=== PATIENT | male | born 1985 | race Caucasian/White ===

== ENCOUNTER 2024-11-30 01:18 | Day surgery (SDC) | payer OTHER, SELFPAY ==
--- NOTE | 2024-11-29 16:16 | SUR.PREOP ---
Report to the Outpatient Waiting Room, entrance under the green pavilion located off [facility], at time _0800_ on date _11/30/24_. Planned Procedure Time: _1000_.? Time changes happen often and if your time is changed the preop area will call you the afternoon before. - You and your visitor will be asked to self-screen and do not enter if you have any COVID symptoms. Please call surgeon if you need to reschedule. - A mask is optional within the hospital at this time. Patients may have clear liquids (water, carbonated beverages, clear teas, apple juice) until 3 hours prior to surgery with a maximum of 20 ounces. - No food from midnight until time of surgery and no smoking, or chewing tobacco (or any form of nicotine). No chewing gum, candy or mints. - Infants may have breast milk until 4 hours before surgery, infant formula 6 hours prior to surgery. - Children will be allowed to drink immediately following surgery.? If applicable, please bring a bottle or sippy cup to assist with drinking. Juice, water, soda, and popsicles are readily available.? For infants on formula, please bring formula the day of surgery.? Pacifiers are allowed. Take only the following medications with a SIP of water on the morning of surgery: _NA_ DO NOT STOP ANY OF YOUR OTHER PRESCRIPTION MEDICATIONS PRIOR TO SURGERY EXCEPT THE FOLLOWING Hold all vitamins and supplements for 3 days per anesthesiologist. Medications to discontinue per physician _NA_ Date to take last dose_NA_ Please no make-up, nail occitan, hairspray, perfume, deodorant, or body powder the day of surgery.? No jewelry (including any body piercings) or valuables the day of surgery, leave them at home.? Please take a shower or bath the night before, or the morning of, surgery with an antibacterial soap.? Wear comfortable, loose fitting clothing.? Children are encouraged to wear pajamas. - Jewelry must be removed prior to entering the operating room.? Rings and piercings that are not removed may be cut off. - The hospital will not accept responsibility for valuables.? - Please leave all valuables, including medications, at home the day of surgery. If you are going home after surgery, a licensed moving van driver must drive you home.? - NO public transportation without another adult if you receive anesthesia. - We recommend that an adult stay with you for 24 hours following discharge. - We also recommend that you do not drive, make important decision, drink alcoholic beverages, or take any drugs that were not prescribed by your health care provider for at least 24 hours after your discharge time. Follow any additional instructions given to you from your surgeon. Telephone instructions given to _Marshallmy_and asked if any additional questions and then verbalized understanding. Patient advised to call surgeon office or pre surgery nurse liaison [phone] if any additional questions.
[2024-11-29 16:23] VITALS: BMI 19.0
[2024-11-30] VITALS (7 sets, daily range): BP systolic 117–164; BP diastolic 71–106; PULSE 48–77; RESP 10–14; TEMP 36.4; O2SAT 98–100
--- OUTSIDE RECORDS SUMMARY | 2024-11-30 01:20 | XMS_ITS | Patient Health Record ---
Author Organization [facility] Address [address] [place] [address] Care Team Providers Care Psych Specialist Name Role Phone Ammon Loco Primary Care Provider [phone] Alona Bojorquez Unavailable Allergies No Known Allergies Results Component Value Reference Range Notes Hepatitis C Virus Antibody w /Rflx to Quantitative Real-time PCR ([id number]) Reviewed date:10/19/2024 01:43:57 PM Interpretation: Performing Lab:[facility], [facility], Phone - [phone], Director - [facility] Notes/Report: HCV Ab Non Reactive Non Reactive Interpretation: Not infected with HCV unless early or acute infection is suspected (which may be delayed in an immunocompromised individual), or other evidence exists to indicate HCV infection. Hepatitis B Surface Antigen (HBsAg Screen) Reviewed date:10/19/2024 01:43:48 PM Interpretation: Performing Lab:[facility], [facility], Phone - [phone], Director - [facility] Notes/Report: HBsAg Screen Negative Negative HIV Screen *HIV 1, 2 Ab, p24 Ag ([id number]) Reviewed date:10/19/2024 01:43:39 PM Interpretation: Performing Lab:[facility], [place] [facility], Phone - [phone], Director - [facility] Notes/Report: HIV Ab/p24 Ag Screen Non Reactive Non Reactive HIV-1/HIV-2 antibodies and HIV-1 p24 antigen were NOT detected. There is no laboratory evidence of HIV infection. HIV Negative Lipid Panel* Reviewed date:10/19/2024 01:43:31 PM Interpretation: Performing [facility], [address] [facility], Phone - [phone], Director - Jasvir Notes/Report: Cholesterol, Total 211 100-199 mg/dL Triglycerides 70 0-149 mg/dL HDL Cholesterol 97 >39 mg/dL VLDL Cholesterol Morales 12 5-40 mg/dL LDL Chol Calc ([facility]) 102 0-99 mg/dL CBC With Differential/Platel et* Reviewed date:10/19/2024 01:43:11 PM Interpretation: Performing Lab:[facility] [place], [address] [facility], Phone - [phone], Director - J[facility] Notes/Report: WBC 7.7 3.4-10.8 x10E3/uL RBC 4.94 4.14-5.80 x10E6/uL Hemoglobin 16.0 13.0-17.7 g/dL Hematocrit 47.3 37.5-51.0 % MCV 96 79-97 fL MCH 32.4 26.6-33.0 pg MCHC 33.8 31.5-35.7 g/dL RDW 11.7 11.6-15.4 % Platelets 279 150-450 x10E3/uL Neutrophils 63 Not Estab. % Lymphs 21 Not Estab. % Monocytes 7 Not Estab. % Eos 7 Not Estab. % Basos 2 Not Estab. % Neutrophils (Absolute) 4.9 1.4-7.0 x10E3/uL Lymphs (Absolute) 1.6 0.7-3.1 x10E3/uL Monocytes(Absolute) 0.6 0.1-0.9 x10E3/uL Eos (Absolute) 0.5 0.0-0.4 x10E3/uL Baso (Absolute) 0.1 0.0-0.2 x10E3/uL Immature Granulocytes 0 Not Estab. % Immature Grans (Abs) 0.0 0.0-0.1 x10E3/uL CMP 14 Comprehensive Metabol ic Panel* Reviewed date:10/19/2024 01:42:17 PM Interpretation: Performing Lab:[facility] [place], [address] [facility], [place], Phone - [phone], Director - Jasvir Notes/Report: Glucose 77 70-99 mg/dL BUN 13 6-20 mg/dL Creatinine 0.98 0.76-1.27 mg/dL eGFR 101 >59 mL/min/1.73 BUN/Creatinine Ratio 13 9-20 Sodium 138 134-144 mmol/L Potassium 4.3 3.5-5.2 mmol/L Chloride 100 96-106 mmol/L Carbon Dioxide, Total 23 20-29 mmol/L Calcium 9.2 8.7-10.2 mg/dL Protein, Total 6.9 6.0-8.5 g/dL Albumin 4.6 4.1-5.1 g/dL Globulin, Total 2.3 1.5-4.5 g/dL Bilirubin, Total <0.2 0.0-1.2 mg/dL Alkaline Phosphatase 94 44-121 IU/L AST (SGOT) 19 0-40 IU/L ALT (SGPT) 20 0-44 IU/L 12 Panel Urine Drug Screen Reviewed date:10/12/2024 11:59:43 AM Interpretation: Performing Lab: Notes/Report: THC POS JAZIEL neg MOP (OPI) neg AMP neg MET neg BAR neg BZO neg MDMA neg MTD neg OXY neg PCP neg BUP neg Reason For Referral Reason EVALUATE AND TREAT P AINFUL RIGHT INGUINAL HERNIA Diagnosis 1 Inguinal hernia (K40 .90) Referral Organization [facility] Referring Provider First Name Ammon Referring Provider Last Name Claudy Referring Provider Speciality Internal edicine Referred Provider Specialty Surgery General Notes MILTON Worley Valeri e A 10/19/2024 01:27:50 PM > Referral to Dr. Mello, general surgery. Letter to patient. Phone notification to patient Clinical Notes Dr. Mello, [address], [address] [address], , Referral Priority Urgent Reason DENTIST UNABLE TO CO MPLETE EXTRACTIONS DUE TO COMPLICATED ANATOMY Diagnosis 1 Periodontal disease, unspecified (K05.6) Referral Organization [facility] Referring Provider First Name Ammon Referring Provider Last Name Claudy Referring Provider Speciality Internal M edicine Referred Provider Specialty Oral Surgery General Notes MILTON Worley Valeri e A 10/19/2024 02:22:58 PM > referral toJame Shansha M 11/23/2024 10:58:42 AM > Referral sent to below place. Called and verified acceptance of [facility]. Letter mailed Clinical Notes [facility], [address] [place] [address] [address], [place] [address], , Referral Priority Routine Social History Tobacco Use: Social History Observation Description Date Details (start date - stop date) Current Smoker NA - NA Sex Assigned At : Social History Observation Description Sex Assigned At Male PRAPARE Question Answer Notes Date Completed/Updated: 10/12/2024 What is your current housing situation? I have h ousing Are you worried about losing your housing? No What is the highest level of school that you have finished? 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 Check all that apply I do not have problems meeting my needs Has lack of transportation k ept you from medical appointments, meetings, work or from getting things needed for daily living? No In the past year have you sp ent more than 2 nights in a row in a correction, chcf, skilled nursing center, or juvenile correctional facility? No Are you a refugee? No What country are you from? [place] PRAPARE Score: 4 Tobacco Control (Standard) Question Answer Notes Tobacco use: Current every day smoker Additional Findings: Tobacco user Heavy cigarett e smoker (20-39 cigs/day) Vital Signs Heart Rate 69 /min 10/12/2024 Respiratory Rate 16 /min 10/12/2024 Blood pressure diastolic 70 mm Hg 10/12/2024 Oximetry 99 % 10/12/2024 Height 72 in 10/12/2024 Blood pressure systolic 102 mm Hg 10/12/2024 Weight 141.6 lbs 10/12/2024 BMI 19.2 kg/m2 10/12/2024 Encounters Encounter Location Date Provider Diagnosis [facility] [address] [place] [address] 10/12/2024 Ammon Loco Inguinal hernia K40.90 ; Right lower quadrant abdominal pain R10.31 ; Periodontal disease, unspecified K05.6 ; Exposure to potential infection Z20.9 ; Lipid screening Z13.220 and History of cocaine abuse Z87.898 Formerly [facility], [facility] [address] [place] [address] 10/12/2024 Alona Bojorquez [address] [place] [address] 10/19/2024 Ammon Loco Assessments Encounter Date Diagnosis (ICD Code) Assessment Notes Treatment Notes Treatment Clinical Notes Section Notes 10/12/2024 Inguinal hernia (ICD-10 - K40.90) TO ED IF PAIN SEVERE OR UNREMITTING 10/12/2024 Right lower quadrant abdominal pain (ICD-10 - R10.31) CLINICALLY DUE TO RIGHT INGUINAL HERNIA 10/12/2024 Periodontal disease, unspecified (ICD-10 - K05.6) 10/12/2024 Exposure to potential infection (ICD-10 - Z20.9) 10/12/2024 Lipid screening (ICD-10 - Z13.220) 10/12/2024 History of cocaine abuse (ICD-10 - Z87.898) 10/12/2024 Other Vocational Coordinator met withOctavio Doyle to assist in working on building skills to help the consumer gain confidence in their independent living skills. The life underwriter practiced with Octavio Doyle implementing problem solving skills including only doing light duty at work and working with the surgeon to schedule the surgery. Plan Of Treatment No Information Insurance Providers Payer Name Payer Address Payer Phone Subscriber Number Group Number Insured Name Patient Relationship to Insured Coverage Start Date Coverage End Date [address] [phone] [id number] Octavio Doyle Self - patient is the insured 9 5 Medical (General) History Surgical History Surgery Date(Month/Year) left arm surgrey rods put in 1996
--- OUTSIDE RECORDS SUMMARY | 2024-11-30 01:20 | XMS_ITS | Referral Summary ---
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
--- OUTSIDE RECORDS SUMMARY | 2024-11-30 01:20 | XMS_ITS | CONTINUITY OF CARE DOCUMENT ---
Author Name cece zhao Address Unknown Organization [facility] Address [address] [place] [address] [address] [place] [address] Phone [phone] Care Team Providers Care Curriculum Development Manager Name Role Phone cece zhao Unavailable Unavailable INSURANCE PROVIDERS Payer name Policy type / Coverage type [place] red democrat [employer] Medicaid 0 [id number] [place] [employer] Medicare [id number]
--- OUTSIDE RECORDS SUMMARY | 2024-11-30 01:20 | XMS_ITS | Clinical Summary ---
Author Organization [address] Address [address] [place] [address] Care Team Providers Care Computer Help Desk Specialist Name Role Phone Prashanth Carrera MD Primary Care Provide r Social History Tobacco Use Types Packs/Day Years Used Date Smoking Tobacco: Never Assessed Personal Safety Answer Date Recorded Getting School Help Needed Not on file 09/19 Sex and Gender Information Value Date Recorded Sex Assigned at Not on file Legal Sex Male 3:45 PM [employer] Gender Identity Not on file Sexual Orientation Not on file Plan of Treatment Not on file Insurance [facility] Care Teams Computer Help Desk Specialist Relationship Specialty Start Date End Date Prashanth Carrera MD [address] [place] [address] PCP - General Emergency Medicine 05/28/21
--- NOTE | 2024-11-30 07:39 | WPDHPUPDATE1 ---
History and Physical Update Update Date/Time: 11/30/24 07:39 History and Physical has been reviewed, including an updated exam of the patient. There are NO changes in the patient's condition. Risks, benefits, and alternatives have been discussed and questions answered. Patient agrees to proceed with procedure.
--- NOTE | 2024-11-30 08:17 | ECG_ITS ---
Test Date: 2024-11-30 08:31:57 Measurements Intervals [place] Rate: 49 P: 42 WV: 136 QRS: 70 QRSD: 109 T: 62 QT: 479 QTc: 434 Interpretive Statements SINUS BRADYCARDIA INCOMPLETE RIGHT BUNDLE BRANCH BLOCK No previous ECG available for comparison Electronically Signed On 11-30-2024 16:40:17 CDT by Praveena Whitney M.D.
[2024-11-30 08:45] LABS: Basophils Absolute Auto 0.1 K/mm3 (0.0-0.1); Basophils Percent Auto 1.6 % (0.2-1.2); Eosinophils Absolute Auto 0.5 K/mm3 (0-0.3); Eosinophils Percent Auto 9.1 % (0-4.4); Hematocrit 43.7 % (42.0-52.0); Hemoglobin 15.2 g/dL (14.0-18.0); Immature Granulocyte Absolute 0.01 K/mm3 (0.00-0.031); Immature Granulocyte Percent A 0.2 % (0-0.5); Lymphocytes Absolute Auto 1.22 K/mm3 (0.9-3.2); Lymphocytes Percent Auto 24.2 % (18.3-44.2); Mean Corpuscular HGB Conc 34.8 g/dl (32-36); Mean Corpuscular Hemoglobin 33.3 pg (26-34); Mean Corpuscular Volume 95.8 fl (80-100); Mean Platelet Volume 9.6 fl (7.4-10.4); Monocytes Absolute Auto 0.5 K/mm3 (0.1-0.6); Monocytes Percent Auto 10.5 % (2.6-8.5); Neutrophils Absolute Auto 2.7 K/mm3 (1.3-6.7); Neutrophils Percent Auto 54.4 % (45.5-73.1); Platelet Count Result 293 k/mm3 (150-375); Red Blood Count 4.56 M/mm3 (4.6-6.20); Red Cell Distribution Width 12.3 % (11.5-14.5)
[2024-11-30] MEDS: ACETAMINOPHEN 500 MG TABLET 1000 MG PO (08:45)
[2024-11-30] MEDS: LACTATED RINGERS 1,000 ML 30 ML IV CONT ×2 (08:45→16:40)
[2024-11-30] MEDS: KETOROLAC 15 MG/ML VIAL (*BKC) IV PUSH (08:45)
--- NOTE | 2024-11-30 12:41 | P.PNAN_ITS ---
Anes - Initial Pre Proc Eval Procedure: Operation Date: 11/30/24 10:00 Proposed Procedures p Robotic Repair Right Inguinal Hernia with Mesh - Stephen Mello MD Date/Time: 11/30/24 12:41 Surgeon: Stephen Mello MD Pre Op Diagnosis: right inguinal hernia Patient Data Age: 39 Gender: M Height: 1.83 m Weight: 60.2 kg Last Vital Signs Temp 97.5 F L 11/30/24 08:45 Pulse 77 11/30/24 08:45 Resp 14 11/30/24 08:45 BP 117/71 11/30/24 08:45 Pulse Ox 100 11/30/24 08:45 O2 Del Method Room Air 11/30/24 08:45 Allergies Allergy/AdvReac Type Severity Reaction Status Date / Time No Known Allergies Allergy Verified 11/30/24 09:42 Home Medications ?Medication ?Instructions ?Recorded ?Confirmed ?Type No Home Medications 11/29/24 11/29/24 History Laboratory Tests 11/30/24 08:31 WBC 5.0 K/mm3 (4.5-10.0) RBC 4.56 L M/mm3 (4.6-6.20) Hgb 15.2 g/dL (14.0-18.0) Hct 43.7 % (42.0-52.0) MCV 95.8 fl (80-100) MCH 33.3 pg (26-34) MCHC 34.8 g/dl (32-36) RDW 12.3 % (11.5-14.5) Plt Count 293 k/mm3 (150-375) MPV 9.6 fl (7.4-10.4) Immature Gran % (Auto) 0.2 % (0-0.5) Neut % (Auto) 54.4 % (45.5-73.1) Lymph % (Auto) 24.2 % (18.3-44.2) [place] % (Auto) 10.5 H % (2.6-8.5) Eos % (Auto) 9.1 H % (0-4.4) Baso % (Auto) 1.6 H % (0.2-1.2) Lymph # (Auto) 1.22 K/mm3 (0.9-3.2) [place] # (Auto) 0.5 K/mm3 (0.1-0.6) Eos # (Auto) 0.5 H K/mm3 (0-0.3) Baso # (Auto) 0.1 K/mm3 (0.0-0.1) Abs Immat Gran (auto) 0.01 K/mm3 (0.00-0.031) Absolute Neuts (auto) 2.7 K/mm3 (1.3-6.7) Absolute Nucleated RBC 0.000 K/mm3 (0.0-0.012) Nucleated RBC % 0.0 % (0.0-0.2) Blood Type O Positive Antibody Screen Negative Patient hx anesthesia problems: none Family hx anesthesia problems: none Results Review: All pre-operative results and documents have been reviewed as part of the pre- operative evaluation. [facility] Past Medical History Medical History GERD (gastroesophageal reflux disease) Family History Family History Father , 42 Cerebrovascular accident Mother Brain aneurysm Social History Social History Social History: Patient drinks caffeine once daily Smoking packs per day: 1 Smoking cigarettes per day: 20.0 Years smoked: 34 Smoking pack-years: 34.00 Smoking status: Current every day smoker Tobacco type: cigarettes Alcohol intake: current Alcohol use details: Patient drinks alcohol every week. 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 ) poor dentition Neurological: alert and oriented Last oral intake: >/= 8 hours ASA classification: II Emergent: no Anesthetic plan: proceed Anesthesia type and monitoring: general ETT and standard monitoring Results Review: All pre-operative results and documents have been reviewed as part of the pre- operative evaluation. Smoker 1 ppd for many years. Informed Consent: The patient's anesthetic plan and its attendant risks and benefits were discussed with the patient/family/POA. Questions were solicited and answers provided to the satisfaction of the patient/family/POA.
[2024-11-30] MEDS: ceFAZolin 2 GM/D5W 50 ML 2 GM/50 ML BAG IVPB (14:34)
[2024-11-30] MEDS: BUPIVACAINE/EPINEPHRINE 0.5% 50 ML VIAL 30 ML INFILTRATE (15:10)
--- NOTE | 2024-11-30 16:46 | P.OP_ITS ---
Procedure Note - Detailed Date of Procedure 11/30/24 Pre-op Diagnosis right inguinal hernia Post-op Diagnosis Same Procedure Performed Robotic laparoscopic repair right inguinal hernia with mesh Surgeon Stephen Mello MD Associate Director Data & Analytics Alonso OBANDO Anesthesia General and Local Indications Patient has noticed a bulge in the right groin. This is occasionally painful and sometimes hard to reduce. He was seen in the office and found to have a reducible right inguinal hernia. It did not extend beyond Hesselbach triangle. He is taken to surgery now for robotic laparoscopic repair with mesh Findings This was an indirect inguinal hernia. Description of Procedure Patient was taken to surgery and induced into general anesthesia. Abdomen was prepped and draped. Initial trocar was placed in left subcostal position. This was a 5 mm applied Medical optical trocar. The 2 robotic ports were then placed under direct visualization. The 5 mm trocar was then switched out for an 8 mm robotic trocar. Ileoinguinal nerve block was then applied with 0.5% Marcaine with epinephrine. Patient was placed in Trendelenburg. The robotic arms were brought into the field and the camera was docked and targeted. The instrument arms were then positioned. The surgeon went to the robotic console. An anterior peritoneal flap was then created over the inguinal canal structures. The flap was developed broadly from anterior to posterior. Medially, dissection was carried down on the under surface of the right rectus muscle. Care was taken to avoid the urinary bladder. Roshan's ligament and the pubis were then carefully dissected. Cautery was used for hemostasis. We then turned our attention to the indirect hernia and the hernia sac. Incision was made on the anterior aspect of the hernia sac dividing the transversalis fibers. We slowly reduced the hernia and the sac was easily seen. The sac was then retracted anteromedially. Using cautery and gentle dissection, the sac was carefully dissected free from the spermatic cord structures. The peritoneum was then dissected further posterior so that it was oversewn 4 cm from the lower margin of the indirect hernia. Dissection was done laterally to free the peritoneum to a similar level. Medially, we dissected to the left of the pubis and then dissected fatty tissue off of the midline and the medial aspect of the left rectus muscle, creating space for the mesh there. All looked good. A 16 x 10 cm right mid 3D max mesh was then placed in the abdomen. It was positioned appropriately in the inguinal space. 3-0 Vicryl suture was used to secure the mesh to Roshan's ligament. 3-0 Vicryl suture were then also used to secure the mesh anteriorly on the lateral and medial aspect. The mesh appeared to be in good position and secure. Three 0 V lock suture was then used to close the peritoneal defect. The needles and any suture remnant were then removed. The instruments were then removed and the robot was undocked. CO2 was evacuated and the trocars were removed. Skin wounds were closed with subcuticular 4-0 Monocryl skin suture. The wounds were dressed with Exofin surgical adhesive. A scrotal support was placed. The patient was awakened and taken to recovery in good condition. Sponge and needle counts were correct x2. Implants Large, 16 x 10 cm, right mid 3DMax mesh Estimated Blood Loss -10 Drains No Packing No Pathology None sent Complications None Condition Stable Disposition PACU [facility] Billing Surgery - Charge Forward: Surgery Billing (Robotic laparoscopic repair right inguinal hernia with mesh)
[2024-11-30] MEDS: oxyCODONE HCL (*CRX) 5 MG TAB IR PO (18:02)
--- NOTE | 2024-11-30 18:29 | SUR.PHASEII ---
Patient vitals are stable. Patient waiting for ride.
== END 2024-11-30 18:32 | disposition home or self-care (01) ==
PROVIDERS: Visit Provider Surgery
PROC: 8E0Y4CZ Robotic Assisted Procedure of Lower Extremity, Percutaneous Endoscopic Approach (ICD-10-PCS; CPT 49650; principal; 2024-11-30 10:00)
DX: K40.90 Unilateral inguinal hernia, without obstruction or gangrene, not specified as recurrent (principal); F17.210 Nicotine dependence, cigarettes, uncomplicated
CPT/HCPCS: 49650; S2900; 36415; 85025; 86850; 86900; 86901; 93005; A9270; C1781; J0690; J1885; J2003; J2250; J2405; J2704; J3010; J7120